=== PATIENT | female | born 1930 | race Caucasian/White ===

== ENCOUNTER 2016-05-15 12:19 | Inpatient (IN) | payer MEDICARE, OTHER ==
[~2016-05-15] VITALS: Ht 172.7 cm; Wt 79.0 kg
[~2016-05-15 12:19] MED LIST: ADVA250A INH; ALBU.5I INH; ASPI81 PO; B COTAB3 PO; CALC600T34 PO; CARV12.52 PO; COZA50TA PO; LEVO75TA42 PO; LORA-392 PO; LOSA25TA31 PO; MULT-65 PO; OMEGCAP2 PO; PRED10PA PO; SERT100 PO; SPECCAP4 PO; VITA3000 PO; ZITH500T PO
[2016-05-15 12:23] VITALS: BP 186/96; PULSE 75; RESP 22; TEMP 98.1; O2SAT 91
[2016-05-15] MEDS ORDERED: ALBU0.08 NEB (12:43)
[2016-05-15] MEDS ORDERED: SPIRCAP INH (12:43)
[2016-05-15] MEDS ORDERED: VITA100036 PO (12:43)
[2016-05-15] MEDS ORDERED: MULT-135 PO (12:43)
[2016-05-15] MEDS ORDERED: LOSA25TA PO (12:43)
[2016-05-15] MEDS ORDERED: CALC600T25 PO (12:43)
[2016-05-15] MEDS ORDERED: ASPI325T PO (12:43)
[2016-05-15] MEDS ORDERED: CARV12.52 PO (12:43)
[2016-05-15] MEDS ORDERED: VITATAB11 PO (12:43)
[2016-05-15] MEDS ORDERED: LORA-392 PO ×2 (12:43)
[2016-05-15] MEDS ORDERED: ZOLO100T PO (12:43)
[2016-05-15] MEDS ORDERED: LEVO75TA43 PO (12:43)
--- NOTE | 2016-05-15 12:58 | PD ---
HPI Chief Complaint: Respiratory Symptoms Time Seen by Provider: 12:43 Travel History International Travel<30 days: No Contact w/Intl Traveler<30days: No Traveled to known affect area: No History of Present Illness HPI This patient is brought in by [facility] for shortness of breath. She has long-standing history of COPD. She is nebulizer dependent and no longer smokes. She has productive cough but no fever. No chest pain. Symptoms severity is moderate. Duration 2 days. She has had some runny nose and congestion. No alleviating factors. She received Solu-Medrol in route [facility] Past Medical History Arthritis: Yes Asthma: Yes Autoimmune Disease: No Blood Disorders: No Anxiety: Yes Depression: Yes Heart Rhythm Problems: Yes (AFIB) Cancer: No Cardiovascular Problems: Yes (HTN) High Cholesterol: Yes (STOPPED TAKING ZETIA) Chemotherapy: No Chest Pain: No Congestive Heart Failure: Yes COPD: Yes Cerebrovascular Accident: No Diabetes: No Diminished Hearing: No Endocrine: No Gastrointestinal Disorders: No GERD: Yes Genitourinary: No Headaches: No Hiatal Hernia: Yes Heparin Induced Thrombocytopen: No Hypertension: Yes Implanted Vascular Access Dvce: No Kidney Stones: No Musculoskeletal: Yes Neurologic: No Psychiatric: Yes Reproductive: No Respiratory: Yes (COPD) Migraines: No Myocardial Infarction: Yes Radiation Therapy: No Renal Failure: No Seizures: No Sickle Cell Disease: No Sleep Apnea: No Thyroid Disease: No Ulcer: No PNEUMOCCOCAL Vaccine (Year): 2 ?: Not Menopausal: Yes Tubal Ligation: Yes Past Surgical History Abdominal Surgery: Yes (APPENDECTOMY) AICD: No Appendectomy: Yes Arteriovenous Shunt: No Cardiac Surgery: No Ear Surgery: No Endocrine Surgery: No Eye Surgery: No Genitourinary Surgery: No Gynecologic Surgery: No Insulin Pump: No Joint Replacement: No Neurologic Surgery: No Oral Surgery: No Pacemaker: No Thoracic Surgery: No Tonsillectomy: Yes Other Surgery: Yes (BREAST LUMP) Social History Alcohol Use: No Tobacco Use: No Substance Use: No Allergies-Medications (Allergen,Severity, Reaction): Coded Allergies: Codeine (Verified Allergy, Severe, INCREASE HEART RATE, 06/22/12) Levaquin (Verified Allergy, Severe, Rash, 06/22/12) Morphine (Verified Allergy, Severe, unknown, 06/22/12) "opiates" "can't remember reaction" Penicillin (Verified Allergy, Severe, Rash, 06/22/12) Sulfa (Verified Allergy, Intermediate, 06/22/12) Reported Meds & Prescriptions Reported Meds & Active Scripts Active Reported Zoloft (Sertraline HCl) 100 Mg Tab 100 Mg PO HS Multi Vitamin (Multiple Vitamin) 1 Tab Tab 1 Tab PO DAILY Losartan (Losartan Potassium) 25 Mg Tab 25 Mg PO DAILY Ativan (Lorazepam) 0.5 Mg Tab 2 Tab PO HS Ativan (Lorazepam) 0.5 Mg Tab 0.5 Mg PO DAILY Levoxyl (Levothyroxine Sodium) 75 Mcg Tab 75 Mcg PO DAILY Vitamin D3 (Cholecalciferol) 1,000 Unit Cap Unknown Dose PO DAILY Carvedilol 12.5 Mg Tab 12.5 Mg PO BID Calcium (Calcium Carbonate) 600 Mg Tab 600 Mg PO HS Vitamin B Complex (B-Complex Vitamins) 1 Tab 1 Tab PO DAILY Aspirin 325 Mg Tab 325 Mg PO HS Albuterol Neb (Albuterol Sulfate) 2.5 Mg/3 Ml Neb 2.5 Mg NEB Q4HR NEB PRN Spiriva Handihaler (Tiotropium Inh) 18 Mcg Cap 18 Mcg INH DAILY 1 capsule = 18 mcg Review of Systems General / Constitutional: No: Fever Eyes: No: Visual changes HENT: Positive: Congestion, No: Headaches Cardiovascular: No: Chest Pain or Discomfort Respiratory: Positive: Cough, Shortness of Breath, Wheezing Gastrointestinal: No: Abdominal Pain Genitourinary: No: Dysuria Musculoskeletal: No: Pain Skin: No Rash Neurologic: No: Weakness Psychiatric: No: Depression Endocrine: No: Polydipsia Hematologic/Lymphatic: No: Easy Bruising Physical Exam Narrative GENERAL: Thin elderly well-developed patient with dyspnea SKIN: Warm and dry. HEAD: Atraumatic. Normocephalic. EYES: Pupils equal and round. No scleral icterus. No injection or drainage. ENT: No nasal bleeding or discharge. Mucous membranes pink and moist. NECK: Trachea midline. No JVD. CARDIOVASCULAR: Regular rate and rhythm. No murmur appreciated. RESPIRATORY: Positive accessory muscle use. Diffuse expiratory wheezing. Breath sounds equal bilaterally. GASTROINTESTINAL: Abdomen soft, non-tender, nondistended. Hepatic and splenic margins not palpable. MUSCULOSKELETAL: No obvious deformities. No clubbing. No cyanosis. No edema. NEUROLOGICAL: Awake and alert. No obvious cranial nerve deficits. Motor grossly within normal limits. Normal speech. PSYCHIATRIC: Appropriate mood and affect; insight and judgment normal. Data Data Last Documented VS Vital Signs Date Time Temp Pulse Resp B/P Pulse Ox O2 Delivery O2 Flow Rate FiO2 05/15/16 13:06 94 Nasal Cannula 2.00 05/15/16 12:30 22 05/15/16 12:23 98.1 75 186/96 Orders Complete Blood Count With Diff (05/15/16 12:48) Basic Metabolic Panel (Bmp) (05/15/16 12:48) Iv Access Insert/Monitor (05/15/16 12:48) Ecg Monitoring (05/15/16 12:48) Oximetry (05/15/16 12:48) Oxygen Administration (05/15/16 12:48) Chest, Single Ap (05/15/16 12:48) Sodium Chloride 0.9% Flush (Ns Flush) (05/15/16 13:00) Albuterol-Ipratropium Neb (Duoneb Neb) (05/15/16 13:00) Admit Order (Ed Use Only) (05/15/16 14:09) Labs Laboratory Tests Test 05/15/16 12:55 White Blood Count 4.9 TH/MM3 Red Blood Count 4.73 MIL/MM3 Hemoglobin 13.0 GM/DL Hematocrit 39.2 % Mean Corpuscular Volume 82.8 FL Mean Corpuscular Hemoglobin 27.4 PG Mean Corpuscular Hemoglobin 33.1 % Concent Red Cell Distribution Width 13.4 % Platelet Count 180 TH/MM3 Mean Platelet Volume 6.5 FL Neutrophils (%) (Auto) 72.1 % Lymphocytes (%) (Auto) 18.6 % Monocytes (%) (Auto) 4.0 % Eosinophils (%) (Auto) 2.6 % Basophils (%) (Auto) 2.7 % Neutrophils # (Auto) 3.6 TH/MM3 Lymphocytes # (Auto) 0.9 TH/MM3 Monocytes # (Auto) 0.2 TH/MM3 Eosinophils # (Auto) 0.1 TH/MM3 Basophils # (Auto) 0.1 TH/MM3 CBC Comment DIFF FINAL Differential Comment Sodium Level 125 MEQ/L Potassium Level 3.6 MEQ/L Chloride Level 88 MEQ/L Carbon Dioxide Level 29.4 MEQ/L Anion Gap 8 MEQ/L Blood Urea Nitrogen 7 MG/DL Creatinine 0.41 MG/DL Estimat Glomerular Filtration 148 ML/MIN Rate Random Glucose 123 MG/DL Calcium Level 8.3 MG/DL MDM Medical Decision Making Medical Screen Exam Complete: Yes Emergency Medical Condition: Yes Medical Record Reviewed: Yes Differential Diagnosis Differential diagnosis includes COPD, asthma, pneumonia, bronchitis, CHF Narrative Course I have reviewed the patient's electronic medical record. Was here for multiple episodes of COPD in 2012 IV placed I gave her series of 3 nebulizer treatments I reviewed her EKG which shows sinus rhythm but no ST elevation or ectopy Extended cardiac monitoring reveals sinus rhythm without ectopy I reviewed her chest x-ray which is normal, same as compared to 2013 CBC is normal Metabolic profile shows hyponatremia, I suspect from her diuretic use Fell of the above treatments, the patient is still short of breath and is hypoxic on room air with 88% room air saturation Will require hospitalization Call placed to hospitalist to discuss Diagnosis Primary Impression: Acute respiratory failure with hypoxia Additional Impression: COPD with acute bronchitis Admitting Information Admitting Physician Requests: Admit Omar Plasencia MD May 15, 2016 12:58
[2016-05-15] MEDS ORDERED: SODIUM CHLORIDE 0.9% FLUSH 5 ML FLUSH IVF PRN (13:00)
[2016-05-15] MEDS: RESP: ALBUTEROL 2.5 MG/IPRATROPIUM 0.5 MG NEB (SCH) INH ×3 (13:03→23:30)
[2016-05-15 13:06] VITALS: O2SAT 94
[2016-05-15 13:08] LABS: AUTOMATED NEUTROPHIL # 3.6 TH/MM3 (1.8-7.7); BASOPHIL # 0.1 TH/MM3 (0-0.2); BASOPHIL % 2.7 % (0.0-2.0); EOSINOPHIL # 0.1 TH/MM3 (0-0.4); EOSINOPHIL % 2.6 % (0.0-4.0); HEMATOCRIT 39.2 % (35.0-46.0); HEMO FLAGS DIFF FINAL; LYMPH % 18.6 % (9.0-44.0); LYMPHOCYTE # 0.9 TH/MM3 (1.0-4.8); MEAN CELL VOLUME 82.8 FL (80.0-100.0); MEAN CORPUSCULAR HEMOGLOBIN 27.4 PG (27.0-34.0); MEAN CORPUSCULAR HGB CONC 33.1 % (32.0-36.0); NEUT % 72.1 % (16.0-70.0); PLATELET COUNT 180 TH/MM3 (150-450); RED BLOOD COUNT 4.73 MIL/MM3 (4.00-5.30); RED CELL DISTRIBUTION WIDTH 13.4 % (11.6-17.2); WHITE BLOOD COUNT 4.9 TH/MM3 (4.0-11.0)
--- NOTE | 2016-05-15 13:13 | RADHPO ---
EXAM DATE/TIME: 05/15/2016 12:58 [facility] COMPARISON: CHEST SINGLE AP, June 22, 2012, 15:20. INDICATIONS : Short of breath & chest pain. MEDICAL HISTORY : Hypertension. Hypercholesterolemia. Emphysema. LA. CHF. A-fib. COPD.Asthma. Hiatial hernia. GERD. Arthritis. SURGICAL HISTORY : Tonsillectomy. Tubal ligation. Appendectomy. Lumbar surgery. ENCOUNTER: Initial ACUITY: 1 day PAIN SCORE: 7/10 LOCATION: chest FINDINGS: A single view of the chest demonstrates the lungs to be symmetrically aerated without evidence of mas s, infiltrate or effusion. The cardiomediastinal contours are unremarkable. Osseous structures are intact. CONCLUSION: Normal examination. Continued diffuse interstitial prominence similar to 2013. Ryan Kee MD on May 15, 2016 at 13:12 Board Certified Radiologist. This report was verified electronically.
[2016-05-15 13:15] LABS: POTASSIUM 3.6 MEQ/L (3.5-5.1)
[2016-05-15 13:18] LABS: BICARBONATE 29.4 MEQ/L (21.0-32.0)
[2016-05-15 14:11] VITALS: BP 166/99; PULSE 81; RESP 18; O2SAT 94
[2016-05-15 14:12] VITALS: RESP 20; O2SAT 93
[2016-05-15] MEDS ORDERED: SODIUM CHLORIDE 0.9% FLUSH 5 ML FLUSH FLUSH PRN (15:15)
--- NOTE | 2016-05-15 16:43 | HHI.HP ---
[facility] Primary Care Physician No Primary Care Physician Admission Diagnosis hyoxia,COPD Exac Diagnoses: (1) Shortness of breath Diagnosis: Principal (2) Chronic obstructive pulmonary disease Diagnosis: Principal (3) Hypoxia Diagnosis: Principal (4) Hypertension Diagnosis: Secondary (5) Hyperlipidemia Diagnosis: Secondary (6) Lupus Chief Complaint: Shortness of breath, dyspnea, cough, congestion Travel History International Travel<30 Days: No Contact w/Intl Traveler <30 Da: No Traveled to Known Affected Are: No History of Present Illness 85-year-old female with known history of hypertension, hyperlipidemia , history myocardial infarction, history of atrial fibrillation, lupus, chronic obstructive pulmonary disease who presented to hospital because of shortness of breath, dyspnea, cough, congestion. Patient states that his normal state of health until her daughter came down to visit. Her daughter was ill with upper respiratory symptoms. Similarly after that the patient started developing upper respiratory symptoms to include cough, congestion, fever, chills. Patient states that it started getting progressively worse yesterday and when she is short of breath today she called her solder sprayer Dr. Noguera who told her to come to the hospital because she couldn't finish a sentence. Patient was found to have hypoxia with O2 saturation 85% on room air. Patient given nebulizer treatments, O2 supplementation with improvement of her O2 saturation of 92% on 2 L. However she still desaturates quite easily when off oxygen. Patient does have history of chronic affective pulmonary disease, she does have a high wire artist Dr. Sparrow. She states that she hasn't seen in min quite some time. Patient states that she has had fever, chills, cough, congestion, phlegm production, shortness of breath, dyspnea. Denies any chest pain, dyspnea on exertion, lower extremity edema. Review of Systems Constitutional: DENIES: Diaphoretic episodes, Fatigue, Fever, Weight gain, Weight loss, Chills, Dizziness, Change in appetite, Night Sweats Eyes: DENIES: Blurred vision, Diplopia, Eye inflammation, Eye pain, Vision loss , Double Vision Ears, nose, mouth, throat: DENIES: Vertigo, Nasal discharge, Throat pain, Ear Pain, Running Nose, Sinus Pain Respiratory: COMPLAINS OF: Cough, Sputum production, Shortness of breath, DENIES: Apneas, Snoring, Wheezing, Hemoptysis Cardiovascular: COMPLAINS OF: Claudication, DENIES: Chest pain, Palpitations, Syncope, Dyspnea on Exertion, Lower Extremity Edema, Orthopnea Gastrointestinal: DENIES: Abdominal pain, Black stools, Bloody stools, Constipation, Diarrhea, Nausea, Vomiting, Difficulty Swallowing, Anorexia Neurologic: DENIES: Abnormal gait, Headache, Localized weakness, Paresthesias, Seizures, Speech Problems, Tremor, Poor Balance Past Family Social History Past Medical History Hypertension Hyperlipidemia History myocardial infarction Atrial fibrillation Chronic obstructive pulmonary disease Lupus Rheumatoid arthritis Hypothyroidism Stress urinary incontinence Past Surgical History Tubal ligation Tonsillectomy Lumbar disc surgery Left breast lumpectomy Reported Medications Reported Meds & Active Scripts Active Reported Zoloft (Sertraline HCl) 100 Mg Tab 100 Mg PO HS Multi Vitamin (Multiple Vitamin) 1 Tab Tab 1 Tab PO DAILY Losartan (Losartan Potassium) 25 Mg Tab 25 Mg PO DAILY Ativan (Lorazepam) 0.5 Mg Tab 2 Tab PO HS Ativan (Lorazepam) 0.5 Mg Tab 0.5 Mg PO DAILY Levoxyl (Levothyroxine Sodium) 75 Mcg Tab 75 Mcg PO DAILY Vitamin D3 (Cholecalciferol) 1,000 Unit Cap Unknown Dose PO DAILY Carvedilol 12.5 Mg Tab 12.5 Mg PO BID Calcium (Calcium Carbonate) 600 Mg Tab 600 Mg PO HS Vitamin B Complex (B-Complex Vitamins) 1 Tab 1 Tab PO DAILY Aspirin 325 Mg Tab 325 Mg PO HS Albuterol Neb (Albuterol Sulfate) 2.5 Mg/3 Ml Neb 2.5 Mg NEB Q4HR NEB PRN Spiriva Handihaler (Tiotropium Inh) 18 Mcg Cap 18 Mcg INH DAILY 1 capsule = 18 mcg Allergies: Coded Allergies: Codeine (Verified Allergy, Severe, INCREASE HEART RATE, 06/22/12) Levaquin (Verified Allergy, Severe, Rash, 06/22/12) Morphine (Verified Allergy, Severe, unknown, 06/22/12) "opiates" "can't remember reaction" Penicillin (Verified Allergy, Severe, Rash, 06/22/12) Sulfa (Verified Allergy, Intermediate, 06/22/12) Family History Reviewed is significant for heart disease Social History Patient for smoking in 1982, prior to that she smoked up to a pack a cigarettes a day since she was roughly 10 years old. He does drink a glass of wine occasionally. Denies any illicit drugs Physical Exam Vital Signs Vital Signs Date Time Temp Pulse Resp B/P Pulse Ox O2 Delivery O2 Flow Rate FiO2 05/15/16 14:12 20 93 Nasal Cannula 2 05/15/16 14:11 81 18 166/99 94 Nasal Cannula 2 05/15/16 14:11 94 Nasal Cannula 2 05/15/16 13:06 94 Nasal Cannula 2.00 05/15/16 12:30 22 95 Nasal Cannula 2 05/15/16 12:23 98.1 75 22 186/96 91 Physical Exam GENERAL: Well-developed, well-nourished, in no acute distress. alert and orientated HEENT: Head is normocephalic without any lesions or masses noted. Facial features are symmetric. Eyes: Pupils equal round reactive to light. Extraocular muscles are intact. Conjunctivae were clear. Oropharyngeal: Pharynx without any erythema edema. Tongue is midline without deviation. Buccal mucosa is moist without any masses or lesions NECK: Supple without any masses. Trachea midline no deviation. No JVD, no bruits are appreciated CARDIAC: Regular rhythm, regular rate. S1/S2 are heard. No murmurs gallops or rubs. LUNGS: Wheeze noted bilaterally, no rhonchi or rales. No use of accessory muscles on inspiration or expiration. ABDOMEN: Soft, nontender. Nondistended. Bowel sounds heard in all 4 quadrants. No organomegaly or masses. Negative rebound, negative guarding EXTREMITIES: No edema, pulses are equal bilaterally. No cyanosis or clubbing NEUROLOGY: Mood and affect appear appropriate. Cranial nerves II through XII grossly intact. Muscle strength 5/5 in upper and lower extremities bilaterally. Deep tendon reflexes are 2+ in upper and lower extremities bilaterally. Laboratory Laboratory Tests Test 05/15/16 12:55 White Blood Count 4.9 Red Blood Count 4.73 Hemoglobin 13.0 Hematocrit 39.2 Mean Corpuscular Volume 82.8 Mean Corpuscular Hemoglobin 27.4 Mean Corpuscular Hemoglobin 33.1 Concent Red Cell Distribution Width 13.4 Platelet Count 180 Mean Platelet Volume 6.5 Neutrophils (%) (Auto) 72.1 Lymphocytes (%) (Auto) 18.6 Monocytes (%) (Auto) 4.0 Eosinophils (%) (Auto) 2.6 Basophils (%) (Auto) 2.7 Neutrophils # (Auto) 3.6 Lymphocytes # (Auto) 0.9 Monocytes # (Auto) 0.2 Eosinophils # (Auto) 0.1 Basophils # (Auto) 0.1 CBC Comment DIFF FINAL Differential Comment Sodium Level 125 Potassium Level 3.6 Chloride Level 88 Carbon Dioxide Level 29.4 Anion Gap 8 Blood Urea Nitrogen 7 Creatinine 0.41 Estimat Glomerular Filtration 148 Rate Random Glucose 123 Calcium Level 8.3 Result Diagram: 05/15/16 1255 05/15/16 1255 Imaging Last Impressions Chest X-Ray 05/15/16 1248 Signed Impressions: Service Date/Time: Sunday, May 15, 2016 12:58 - CONCLUSION: Normal examination. Continued diffuse interstitial prominence similar to 2013. Ryan Kee MD Assessment and Plan Assessment and Plan Chronic obstructive pulmonary disease exacerbation with hypoxia Continue O2 supplementation maintain O2 sats greater than 92% Continue nebulizer treatments every 4 hours and every 2 hours Solu-Medrol 60 mg every 6 hours Incentive spirometry Start Mucinex Start Zithromax Hyponatremia Likely secondary to HCTZ We'll hold HCTZ at this time Check serum osmolality, urine osmolality, urine sodium Continue IV fluids Monitor sodium level Chest x-ray does not indicate any mass Hypertension, hyperlipidemia, history myocardial infarction, history of a defibrillation Resume home medications Hypothyroidism Check TSH DVT prevention Sequential compression devices Physician Certification 2 Midnight Certification Type: Admission for Inpatient Services Order for Inpatient Services The services are ordered in accordance with Medicare regulations or non- Medicare payer requirements, as applicable. In the case of services not specified as inpatient-only, they are appropriately provided as inpatient services in accordance with the 2-midnight benchmark. Estimated LOS (days): 2 days is the estimated time the patient will need to remain in the hospital, assuming treatment plan goals are met and no additional complications. Post-Hospital Plan: Not yet determined Problem Qualifiers (1) Chronic obstructive pulmonary disease: Qualified Code: J44.9 - Chronic obstructive pulmonary disease, unspecified COPD type (2) Hypertension: Qualified Code: I15.9 - Secondary hypertension (3) Hyperlipidemia: Qualified Code: E78.5 - Hyperlipidemia, unspecified hyperlipidemia type (4) Lupus: Qualified Code: M32.9 - Systemic lupus erythematosus, unspecified SLE type, unspecified organ involvement status Gil,Omar J. PA May 15, 2016 16:42 Christina Abdul MD May 15, 2016 17:37
[2016-05-15] MEDS ORDERED: RESP: ALBUTEROL 2.5 MG/IPRATROPIUM 0.5 MG NEB (PRN) NEB (17:00)
[2016-05-15] MEDS ORDERED: MAGNESIUM HYDROXIDE SUSP 30 ML CUP PO PRN (17:00)
[2016-05-15] MEDS ORDERED: NALOXONE HCL 0.4 MG/ML AMP IV PRN (17:00)
[2016-05-15] MEDS ORDERED: TEMAZEPAM 15 MG CAP PO PRN (17:00)
[2016-05-15] MEDS ORDERED: ACETAMINOPHEN 325 MG TAB PO PRN (17:00)
[2016-05-15] MEDS ORDERED: BISACODYL 10 MG SUPP PR PRN (17:00)
[2016-05-15] MEDS: methylPREDNISolone SOD SUCC 125 MG/2 ML VIAL IVP SCH ×2 (17:53→22:13)
[2016-05-15] MEDS ORDERED: LORazepam 2 MG/ML VIAL IV PUSH PRN (19:00)
[2016-05-15] MEDS: ONDANSETRON HCL 4 MG/2 ML VIAL IVP PRN (19:16)
[2016-05-15 19:53] VITALS: O2SAT 94
[2016-05-15] MEDS ORDERED: IOHEXOL 350 MG/ML 10 ML VIAL (for RAD DIAG) IV ONE (19:54)
[2016-05-15 20:00] VITALS: BP 158/80; PULSE 89; RESP 20; TEMP 97.4; O2SAT 95
--- NOTE | 2016-05-15 20:27 | RADHPO ---
EXAM DATE/TIME: 05/15/2016 19:35 [facility] COMPARISON: No previous studies available for comparison. INDICATIONS: Hypoxia with elevated D-Dimer. IV CONTRAST: 65 cc Omnipaque 350 (iohexol) IV RADIATION DOSE: 7.17 CTDIvol (mGy) MEDICAL HISTORY: Hypertension. Chronic obstructive pulmonary disease. Cardiovascular disease SURGICAL HISTORY: Appendectomy. ENCOUNTER: Initial ACUITY: 4 - 6 days PAIN SCALE: 0/10 LOCATION: Chest TECHNIQUE: Volumetric scanning of the chest was performed using a pulmonary embolism protocol MIP images were re constructed. Using automated exposure control and adjustment of the mA and/or kV according to patien t size, radiation dose was kept as low as reasonably achievable to obtain optimal diagnostic quality images. FINDINGS: A pulmonary embolus is not clearly seen. There does appear to be enlargement of the main right and l eft pulmonary arteries which can suggest pulmonary hypertension. The patient has calcified granulomas in the right upper lung. There is some patchy areas of focal consolidation in the upper lobes bilaterally. There is also some patchy areas of density seen at the right lung base. There are mildly prominent lymph nodes seen in the mediastinum. Pathologically enlarged adenopathy i s not clearly identified. There are coronary artery calcifications present. No effusion is seen. There a re calcified granulomas seen in the spleen. The inferior aspect of the right lobe of the thyroid appears fine. CONCLUSION: 1. No pulmonary embolus. 2. Enlargement of the main right and left pulmonary arteries which can suggest pulmonary hypertensio n. 3. Patchy areas of consolidation or atelectasis is seen in the lungs bilaterally being more numerous on the right. Juma Verduzco MD on May 15, 2016 at 20:05 Board Certified Radiologist. This report was verified electronically.
[2016-05-15] MEDS ORDERED: SODIUM CHLORIDE 0.9% FLUSH 5 ML FLUSH FLUSH SCH (21:00)
[2016-05-15] MEDS ORDERED: LORazepam 1 MG TAB PO SCH (21:00)
[2016-05-15] MEDS: SERTRALINE HCL 100 MG TAB PO SCH (22:12)
[2016-05-15] MEDS: CARVEDILOL 12.5 MG TAB PO SCH (22:12)
[2016-05-15] MEDS: guaiFENesin E.R. 600 MG TAB PO SCH (22:12)
[2016-05-15] MEDS: SODIUM CHLORIDE 0.9% FLUSH 5 ML FLUSH IVF SCH (22:13)
[2016-05-15] MEDS: ASPIRIN 325 MG TAB PO SCH (22:15)
[2016-05-16] VITALS (7 sets, daily range): BP systolic 126–157; BP diastolic 70–96; PULSE 71–112; RESP 15–20; TEMP 96.3–97.7; O2SAT 92–94
[2016-05-16] MEDS: RESP: ALBUTEROL 2.5 MG/IPRATROPIUM 0.5 MG NEB (SCH) INH ×6 (03:07→23:49)
[2016-05-16] MEDS: LEVOTHYROXINE SODIUM 75 MCG TAB PO SCH (05:28)
[2016-05-16] MEDS: methylPREDNISolone SOD SUCC 125 MG/2 ML VIAL IVP SCH ×4 (05:29→23:15)
[2016-05-16 06:30] LABS: AUTOMATED NEUTROPHIL # 5.7 TH/MM3 (1.8-7.7); BASOPHIL % 0.5 % (0.0-2.0); EOSINOPHIL % 0.1 % (0.0-4.0); HEMATOCRIT 41.8 % (35.0-46.0); HEMO FLAGS DIFF FINAL; LYMPH % 12.1 % (9.0-44.0); LYMPHOCYTE # 0.8 TH/MM3 (1.0-4.8); MEAN CORPUSCULAR HEMOGLOBIN 27.3 PG (27.0-34.0); MONO % 2.6 % (0.0-8.0); NEUT % 84.7 % (16.0-70.0); PLATELET COUNT 230 TH/MM3 (150-450); RED BLOOD COUNT 5.04 MIL/MM3 (4.00-5.30); RED CELL DISTRIBUTION WIDTH 13.8 % (11.6-17.2); WHITE BLOOD COUNT 6.7 TH/MM3 (4.0-11.0)
[2016-05-16 06:38] LABS: POTASSIUM 3.9 MEQ/L (3.5-5.1)
[2016-05-16 07:06] LABS: BICARBONATE 32.7 MEQ/L (21.0-32.0)
[2016-05-16] MEDS ORDERED: LORazepam 0.5 MG TAB PO SCH (09:00)
[2016-05-16] MEDS: CARVEDILOL 12.5 MG TAB PO SCH ×2 (09:42→22:08)
[2016-05-16] MEDS: AZITHROMYCIN 250 MG TAB PO SCH (09:42)
[2016-05-16] MEDS: guaiFENesin E.R. 600 MG TAB PO SCH ×2 (09:42→22:08)
[2016-05-16] MEDS: LOSARTAN 25 MG TAB PO SCH (09:42)
[2016-05-16] MEDS: SODIUM CHLORIDE 0.9% FLUSH 5 ML FLUSH IVF SCH ×2 (09:42→22:09)
[2016-05-16] MEDS ORDERED: BENZOCAINE 6 MG/MENTHOL 10 MG LOZENGE BUCCAL PRN (11:15)
[2016-05-16] MEDS ORDERED: guaiFENesin/CODEINE SYRUP 200 MG/20 MG/10 ML CUP PO PRN (11:15)
--- NOTE | 2016-05-16 11:17 | HHI.PR ---
Subjective Remarks Patient still feels quite dyspneic with talking or exertion. She also complains of sore throat. Not feeling much improved since admission. Objective Vitals Vital Signs Date Time Temp Pulse Resp B/P Pulse Ox O2 Delivery O2 Flow Rate FiO2 05/16/16 08:56 97.7 100 15 145/96 93 05/16/16 07:56 92 Nasal Cannula 3.00 05/16/16 00:00 97.6 71 20 134/78 92 05/15/16 20:00 97.4 89 20 158/80 95 05/15/16 19:53 94 Nasal Cannula 3.00 05/15/16 14:12 20 93 Nasal Cannula 2 05/15/16 14:11 81 18 166/99 94 Nasal Cannula 2 05/15/16 14:11 94 Nasal Cannula 2 05/15/16 13:06 94 Nasal Cannula 2.00 05/15/16 12:30 22 95 Nasal Cannula 2 05/15/16 12:23 98.1 75 22 186/96 91 I/O 05/15/16 05/15/16 05/15/16 05/16/16 05/16/16 05/16/16 07:00 15:00 23:00 07:00 15:00 23:00 Intake Total 240 ml 60 ml Output Total 350 ml Balance -110 ml 60 ml Intake Oral 240 ml 60 ml Output Urine Total 350 ml # Voids 2 2 # Bowel Movements 0 0 Result Diagram: 05/16/16 0608 05/16/16 0608 Objective Remarks GENERAL: Well-nourished, well-developed pleasant elderly female patient. SKIN: Warm and dry. HEAD: Normocephalic. EYES: No scleral icterus. No injection or drainage. NECK: Supple, trachea midline. No JVD or lymphadenopathy. CARDIOVASCULAR: Regular rate and rhythm without murmurs, gallops, or rubs. RESPIRATORY: The patient does get notably dyspneic when speaking for long periods of time. She has expiratory wheezing bilaterally. Dry cough noted. GASTROINTESTINAL: Abdomen soft, non-tender, nondistended. EXTREMITIES: No cyanosis, or edema. Patient does have a 1 cm black nodule on her right anterior saravia indicative of a skin cancer. NEUROLOGICAL: Awake, alert, and oriented x 3. Non-focal. A/P Problem List: (1) Shortness of breath ICD Code: R06.02 Status: Acute (2) Chronic obstructive pulmonary disease ICD Code: J44.9 Status: Acute (3) Hypoxia ICD Code: R09.02 Status: Acute (4) Hypertension ICD Code: I10 Status: Acute (5) Hyperlipidemia ICD Code: E78.5 Status: Acute (6) Lupus ICD Code: M32.9 Status: Acute Assessment and Plan -COPD exacerbation with new onset hypoxia. The patient gives a long-standing history of getting dyspneic with exertion. She likely will require home oxygen. Continue Solu-Medrol 60 mg IV every 6 hours, DuoNeb's, Zithromax. Chest CTA was negative for pulmonary embolism but did show patchy areas of consolidation or atelectasis bilaterally more numerous on the right. We'll place on Azactam IV as well as she is allergic to Levaquin and penicillin. Continue O2 via nasal cannula at 3 L. -Hyponatremia. Probably secondary to the HCTZ, slight improvement today. Continue to monitor daily, consider NS IVF. Hypertension -Continue Cozaar, Coreg -Anxiety and depression. -Continue Ativan and Zoloft. As per home doses. -history myocardial infarction -continue aspirin, beta evelyn. Hypothyroidism Continue Synthroid. TSH within normal limits. DVT prevention Sequential compression devices Problem Qualifiers (1) Chronic obstructive pulmonary disease: Qualified Code: J44.9 - Chronic obstructive pulmonary disease, unspecified COPD type (2) Hypertension: Qualified Code: I15.9 - Secondary hypertension (3) Hyperlipidemia: Qualified Code: E78.5 - Hyperlipidemia, unspecified hyperlipidemia type (4) Lupus: Qualified Code: M32.9 - Systemic lupus erythematosus, unspecified SLE type, unspecified organ involvement status Geovanna Cazares MD May 16, 2016 11:17
[2016-05-16] MEDS: AZTREONAM INJ 2,000 MG in SODIUM CHLORIDE 0.9% INJ 100 ML IV SCH ×2 (14:49→22:08)
--- NOTE | 2016-05-16 15:48 | EKG ---
Date Performed: 05/15/2016 Time Performed: 12:24:36 PTAGE: 85 years EKG: Sinus rhythm . Leftward axis Incomplete RBBB Possible anterior infarct - age undetermined Right ventricular hypert rophy Compared to prior tracing no significant change Abnormal ECG PREVIOUS TRACING : 06/22/2012 14.41 DOCTOR: Brian Zaidi Interpretating Date/Time 05/16/2016 15:45:26
[2016-05-16] MEDS: LORazepam 0.5 MG TAB PO PRN ×2 (16:15→22:08)
[2016-05-16] MEDS: ONDANSETRON HCL 4 MG/2 ML VIAL IVP PRN (18:03)
[2016-05-16] MEDS: ASPIRIN 325 MG TAB PO SCH (22:08)
[2016-05-16] MEDS: SERTRALINE HCL 100 MG TAB PO SCH (22:09)
[2016-05-17] VITALS (8 sets, daily range): BP systolic 149–176; BP diastolic 86–112; PULSE 73–106; RESP 18–22; TEMP 96.7–98.8; O2SAT 91–95
[2016-05-17] MEDS: RESP: ALBUTEROL 2.5 MG/IPRATROPIUM 0.5 MG NEB (SCH) INH ×4 (03:01→22:13)
[2016-05-17] MEDS: methylPREDNISolone SOD SUCC 125 MG/2 ML VIAL IVP SCH ×4 (05:37→23:51)
[2016-05-17] MEDS: AZTREONAM INJ 2,000 MG in SODIUM CHLORIDE 0.9% INJ 100 ML IV SCH ×3 (05:37→21:12)
[2016-05-17] MEDS: LEVOTHYROXINE SODIUM 75 MCG TAB PO SCH (05:39)
[2016-05-17] MEDS: LORazepam 0.5 MG TAB PO PRN ×2 (05:43→14:39)
[2016-05-17 06:06] LABS: POTASSIUM 4.3 MEQ/L (3.5-5.1)
[2016-05-17 06:15] LABS: BICARBONATE 31.8 MEQ/L (21.0-32.0)
[2016-05-17] MEDS: CARVEDILOL 12.5 MG TAB PO SCH ×2 (09:01→21:11)
[2016-05-17] MEDS: LOSARTAN 25 MG TAB PO SCH (09:01)
[2016-05-17] MEDS: AZITHROMYCIN 250 MG TAB PO SCH (09:01)
[2016-05-17] MEDS: SODIUM CHLORIDE 0.9% FLUSH 5 ML FLUSH IVF SCH ×2 (09:02→21:12)
[2016-05-17] MEDS: guaiFENesin E.R. 600 MG TAB PO SCH ×2 (10:38→21:12)
--- NOTE | 2016-05-17 12:20 | HHI.PR ---
Subjective Remarks Patient seen at 11:30 AM. She does not feel any improved today. Still dyspneic with exertion. Nasal congestion. She also complains of headache and subjective fevers. She also complains of not sleeping well and requests to have the DuoNeb scheduled during the day. She declines Benadryl to help her sleep. Declines sleeping pill. Patient feels she will do better if placed back on Spiriva. Objective Vitals Vital Signs Date Time Temp Pulse Resp B/P Pulse Ox O2 Delivery O2 Flow Rate FiO2 05/17/16 09:44 92 Nasal Cannula 3.00 05/17/16 08:00 98.0 82 20 164/90 91 05/17/16 05:30 97.7 86 22 176/99 94 05/17/16 00:00 96.7 106 20 168/112 95 05/16/16 20:00 97.6 89 20 126/70 94 Automatic Cuff 05/16/16 19:45 93 Nasal Cannula 3.00 05/16/16 17:48 96.8 102 20 157/91 94 05/16/16 15:00 3.00 05/16/16 14:08 3.00 I/O 05/16/16 05/16/16 05/16/16 05/17/16 05/17/16 05/17/16 07:00 15:00 23:00 07:00 15:00 23:00 Intake Total 60 ml 500 ml 800 ml 580 ml Balance 60 ml 500 ml 800 ml 580 ml Intake Oral 60 ml 500 ml 800 ml 480 ml IV Total 100 ml # Voids 2 4 4 # Bowel Movements 0 0 Result Diagram: 05/16/16 0608 05/17/16 0440 Objective Remarks GENERAL: Well-nourished, well-developed pleasant elderly female patient. SKIN: Warm and dry. HEAD: Normocephalic. EYES: No scleral icterus. No injection or drainage. NECK: Supple, trachea midline. No JVD or lymphadenopathy. CARDIOVASCULAR: Regular rate and rhythm without murmurs, gallops, or rubs. RESPIRATORY: She has expiratory wheezing bilaterally with prolonged expiratory phase but nonlabored breathing on nasal cannula. GASTROINTESTINAL: Abdomen soft, non-tender, nondistended. EXTREMITIES: No cyanosis, or edema. Patient does have a 1 cm black nodule on her right anterior/lateral saravia indicative of a skin cancer. NEUROLOGICAL: Awake, alert, and oriented x 3. Non-focal. A/P Problem List: (1) Shortness of breath ICD Code: R06.02 Status: Acute (2) Chronic obstructive pulmonary disease ICD Code: J44.9 Status: Acute (3) Hypoxia ICD Code: R09.02 Status: Acute (4) Hypertension ICD Code: I10 Status: Acute (5) Hyperlipidemia ICD Code: E78.5 Status: Acute (6) Lupus ICD Code: M32.9 Status: Acute Assessment and Plan -COPD exacerbation with new onset hypoxia. The patient gives a long-standing history of getting dyspneic with exertion. No significant improvement today. Continue Solu-Medrol 60 mg IV every 6 hours, DuoNeb's, Zithromax, Azactam IV. Chest CTA was negative for pulmonary embolism but did show patchy areas of consolidation or atelectasis bilaterally more numerous on the right. Change DuoNeb's to 3 times a day as patient requests, start Spiriva. Continue O2 via nasal cannula at 3 L. -Hyponatremia. Probably secondary to the HCTZ, improving daily. HCTZ discontinued. Hypertension -Continue Cozaar, Coreg -Anxiety and depression. -Continue Ativan and Zoloft. As per home doses. -history myocardial infarction -continue aspirin, beta evelyn. Hypothyroidism Continue Synthroid. TSH within normal limits. DVT prevention Sequential compression devices Problem Qualifiers (1) Chronic obstructive pulmonary disease: Qualified Code: J44.9 - Chronic obstructive pulmonary disease, unspecified COPD type (2) Hypertension: Qualified Code: I15.9 - Secondary hypertension (3) Hyperlipidemia: Qualified Code: E78.5 - Hyperlipidemia, unspecified hyperlipidemia type (4) Lupus: Qualified Code: M32.9 - Systemic lupus erythematosus, unspecified SLE type, unspecified organ involvement status Geovanna Cazares MD May 17, 2016 12:20
[2016-05-17] MEDS: TIOTROPIUM BROMIDE 18 MCG INH INH SCH (14:48)
[2016-05-17] MEDS: SODIUM CHLORIDE 0.9% FLUSH 5 ML FLUSH IVF PRN ×2 (14:50→17:25)
[2016-05-17] MEDS: ASPIRIN 325 MG TAB PO SCH (21:11)
[2016-05-17] MEDS: SERTRALINE HCL 100 MG TAB PO SCH (21:11)
[2016-05-18] VITALS (8 sets, daily range): BP systolic 121–219; BP diastolic 71–122; PULSE 64–100; RESP 16–22; TEMP 97–98; O2SAT 93–96
[2016-05-18] MEDS: LEVOTHYROXINE SODIUM 75 MCG TAB PO SCH (05:52)
[2016-05-18] MEDS: AZTREONAM INJ 2,000 MG in SODIUM CHLORIDE 0.9% INJ 100 ML IV SCH ×3 (05:56→22:03)
[2016-05-18] MEDS: methylPREDNISolone SOD SUCC 125 MG/2 ML VIAL IVP SCH ×2 (05:56→11:00)
[2016-05-18 06:10] LABS: POTASSIUM 4.6 MEQ/L (3.5-5.1)
[2016-05-18 06:17] LABS: BICARBONATE 32.8 MEQ/L (21.0-32.0)
[2016-05-18] MEDS: LORazepam 0.5 MG TAB PO PRN ×2 (09:11→17:32)
[2016-05-18] MEDS: LOSARTAN 25 MG TAB PO SCH (09:12)
[2016-05-18] MEDS: AZITHROMYCIN 250 MG TAB PO SCH (09:12)
[2016-05-18] MEDS: CARVEDILOL 12.5 MG TAB PO SCH ×2 (09:12→22:02)
[2016-05-18] MEDS: guaiFENesin E.R. 600 MG TAB PO SCH ×2 (09:12→22:03)
[2016-05-18] MEDS: SODIUM CHLORIDE 0.9% FLUSH 5 ML FLUSH IVF SCH ×2 (09:14→22:03)
[2016-05-18] MEDS: TIOTROPIUM BROMIDE 18 MCG INH INH SCH (09:15)
[2016-05-18] MEDS: RESP: ALBUTEROL 2.5 MG/IPRATROPIUM 0.5 MG NEB (SCH) INH ×3 (10:19→19:58)
[2016-05-18] MEDS ORDERED: cloNIDine HCL 0.1 MG TAB PO PRN (11:45)
[2016-05-18] MEDS ORDERED: LOSA25TA PO (11:49)
[2016-05-18] MEDS ORDERED: NEBULIZER1 MI1 (11:49)
[2016-05-18] MEDS ORDERED: VENTAER INH (11:49)
[2016-05-18] MEDS ORDERED: DOXY100C PO (11:49)
[2016-05-18] MEDS ORDERED: ALBU0.08 NEB (11:49)
[2016-05-18] MEDS ORDERED: OXYGENTANK NAS.CANULA (11:49)
--- NOTE | 2016-05-18 11:51 | HHI.FF ---
Face to Face Verification Diagnosis: (1) Hypoxia (2) Shortness of breath (3) COPD with acute bronchitis Physical Therapy Order: Evaluate and Treat Home Health Nursing Order: Medical education Signs/symptoms of disease process Oxygen administration education Medication education-adverse effect Wound care and dressing changes Nursing assessment with vital signs I have seen patient Nakita Rivera on 05/18/16. My clinical findings support the need for the requested home health care services because: Ltd mobility - disease progression Patient has SOB Deconditioned w/ increased weakness Need for psychosocial assistance I certify that my clinical findings support that this patient is homebound because: Hx COPD- exertion dyspnea/weakness Need for psychosocial assistance Geovanna Cazares MD May 18, 2016 11:50
--- NOTE | 2016-05-18 11:53 | HHI.PR ---
Subjective Remarks Patient's main complaint today is sore throat and congestion in the upper airways. She still feels weak. She is very upset because she got news that her skin cancer is a squamous cell carcinoma. The patient has blood pressure elevations today and she is also concerned about that. Objective Vitals Vital Signs Date Time Temp Pulse Resp B/P Pulse Ox O2 Delivery O2 Flow Rate FiO2 05/18/16 10:22 93 Nasal Cannula 3.00 05/18/16 08:00 97.9 100 20 219/122 94 180/90 05/18/16 04:00 97.9 68 16 121/74 96 05/18/16 00:00 97.4 64 16 123/71 95 05/17/16 22:15 94 Nasal Cannula 2.00 05/17/16 20:00 97.9 73 18 155/89 94 05/17/16 16:00 98.2 88 20 149/86 93 05/17/16 12:00 98.8 92 22 153/88 93 I/O 05/17/16 05/17/16 05/17/16 05/18/16 05/18/16 05/18/16 07:00 15:00 23:00 07:00 15:00 23:00 Intake Total 580 ml 1135 ml 300 ml 440 ml Balance 580 ml 1135 ml 300 ml 440 ml Intake Oral 480 ml 1135 ml 240 ml IV Total 100 ml 300 ml 200 ml # Voids 4 4 1 2 # Bowel Movements 0 0 0 Result Diagram: 05/16/16 0608 05/18/16 0535 Objective Remarks GENERAL: Well-nourished, well-developed pleasant elderly female patient. SKIN: Warm and dry. HEAD: Normocephalic. EYES: No scleral icterus. No injection or drainage. NECK: Supple, trachea midline. No JVD or lymphadenopathy. CARDIOVASCULAR: Regular rate and rhythm without murmurs, gallops, or rubs. RESPIRATORY: Much improved airflow and nonlabored breathing on nasal cannula. No expiratory wheezing today. Still noted to have a wet sounding cough and a lot of nasal congestion. GASTROINTESTINAL: Abdomen soft, non-tender, nondistended. EXTREMITIES: No cyanosis, or edema. Patient does have a 1 cm black nodule on her right anterior/lateral saravia indicative of a skin cancer. NEUROLOGICAL: Awake, alert, and oriented x 3. Non-focal. A/P Problem List: (1) Shortness of breath ICD Code: R06.02 Status: Acute (2) Chronic obstructive pulmonary disease ICD Code: J44.9 Status: Acute (3) Hypoxia ICD Code: R09.02 Status: Acute (4) Hypertension ICD Code: I10 Status: Acute (5) Hyperlipidemia ICD Code: E78.5 Status: Acute (6) Lupus ICD Code: M32.9 Status: Acute Assessment and Plan -COPD exacerbation with new onset hypoxia. The patient gives a long-standing history of getting dyspneic with exertion. Clinically improved with much improved airflow. Will DC Solu-Medrol and start prednisone. Continue Zithromax and Azactam. Likely transition to doxycycline at discharge. Chest CTA was negative for pulmonary embolism but did show patchy areas of consolidation or atelectasis bilaterally more numerous on the right. Continue duo nebs and Spiriva. Continue O2 via nasal cannula at 3 L, wean to keep sats at 90% or higher. -Hyponatremia. Probably secondary to the HCTZ, improving daily. HCTZ discontinued. Sodium 133 today. Hypertension -Continue Cozaar, Coreg - blood pressures are running higher so I will increase the Cozaar to 50 mg daily. -Anxiety and depression. -Continue Ativan and Zoloft. As per home doses. -history myocardial infarction -continue aspirin, beta evelyn. Hypothyroidism Continue Synthroid. TSH within normal limits. DVT prevention Sequential compression devices Discharge Planning Possible discharge home tomorrow with home health care and home O2. Problem Qualifiers (1) Chronic obstructive pulmonary disease: Qualified Code: J44.9 - Chronic obstructive pulmonary disease, unspecified COPD type (2) Hypertension: Qualified Code: I15.9 - Secondary hypertension (3) Hyperlipidemia: Qualified Code: E78.5 - Hyperlipidemia, unspecified hyperlipidemia type (4) Lupus: Qualified Code: M32.9 - Systemic lupus erythematosus, unspecified SLE type, unspecified organ involvement status Geovanna Cazares MD May 18, 2016 11:53
[2016-05-18] MEDS ORDERED: LOSARTAN 25 MG TAB PO ONE (12:00)
[2016-05-18] MEDS: predniSONE 20 MG TAB PO SCH (22:03)
[2016-05-18] MEDS: SERTRALINE HCL 100 MG TAB PO SCH (22:03)
[2016-05-18] MEDS: ASPIRIN 325 MG TAB PO SCH (22:03)
[2016-05-19] VITALS (7 sets, daily range): BP systolic 138–180; BP diastolic 68–99; PULSE 65–97; RESP 17–22; TEMP 97.7–98.7; O2SAT 92–97
[2016-05-19] MEDS: LEVOTHYROXINE SODIUM 75 MCG TAB PO SCH (06:11)
[2016-05-19] MEDS: AZTREONAM INJ 2,000 MG in SODIUM CHLORIDE 0.9% INJ 100 ML IV SCH ×3 (06:11→20:41)
[2016-05-19] MEDS: RESP: ALBUTEROL 2.5 MG/IPRATROPIUM 0.5 MG NEB (SCH) INH ×3 (07:10→19:13)
[2016-05-19] MEDS: ONDANSETRON HCL 4 MG/2 ML VIAL IVP PRN (08:04)
[2016-05-19] MEDS: guaiFENesin E.R. 600 MG TAB PO SCH ×2 (08:07→20:47)
[2016-05-19] MEDS: AZITHROMYCIN 250 MG TAB PO SCH (08:07)
[2016-05-19] MEDS: CARVEDILOL 12.5 MG TAB PO SCH ×2 (08:07→20:47)
[2016-05-19] MEDS: predniSONE 20 MG TAB PO SCH ×2 (08:07→20:47)
[2016-05-19] MEDS: LORazepam 0.5 MG TAB PO PRN ×2 (08:07→20:47)
[2016-05-19] MEDS: TIOTROPIUM BROMIDE 18 MCG INH INH SCH (08:08)
[2016-05-19] MEDS: SODIUM CHLORIDE 0.9% FLUSH 5 ML FLUSH IVF SCH ×2 (08:09→20:48)
[2016-05-19] MEDS ORDERED: LOSARTAN 50 MG TAB PO SCH (09:00)
[2016-05-19] MEDS ORDERED: LOSARTAN 50 MG TAB PO ONE (10:30)
[2016-05-19] MEDS ORDERED: CARVEDILOL 12.5 MG TAB PO ONE (10:30)
--- NOTE | 2016-05-19 10:31 | HHI.PR ---
Subjective Remarks Patient seen and examined today with Dr. Cazares. Patient respiratory status improving, she is on 2 L nasal cannula at this time. Patient states that her breathing is improved. Discussed with her discharge options. Patient does not feel that she can go home today, because her daughter can't pick her up. Objective Vitals Vital Signs Date Time Temp Pulse Resp B/P Pulse Ox O2 Delivery O2 Flow Rate FiO2 05/19/16 08:00 97.7 97 17 180/99 97 05/19/16 07:10 97 Nasal Cannula 3.00 05/19/16 00:00 98.0 65 18 144/86 95 05/18/16 20:27 97.6 75 22 181/102 96 05/18/16 19:58 96 Nasal Cannula 3.00 05/18/16 16:00 98.0 72 18 130/80 96 05/18/16 12:00 97.0 70 20 122/71 95 05/18/16 10:22 93 Nasal Cannula 3.00 I/O 05/18/16 05/18/16 05/18/16 05/19/16 05/19/16 05/19/16 07:00 15:00 23:00 07:00 15:00 23:00 Intake Total 440 ml 700 ml Balance 440 ml 700 ml Intake Oral 240 ml 600 ml IV Total 200 ml 100 ml # Voids 2 4 3 # Bowel Movements 0 Result Diagram: 05/16/16 0608 05/18/16 0535 Objective Remarks GENERAL: Well-developed, well-nourished, in no acute distress. alert and orientated HEENT: Head is normocephalic without any lesions or masses noted. Facial features are symmetric. Eyes: Extraocular muscles are intact. Conjunctivae were clear. NECK: Supple without any masses. Trachea midline no deviation. No JVD, CARDIAC: Regular rhythm, regular rate. S1/S2 are heard. No murmurs gallops or rubs. LUNGS: Clear to auscultation bilaterally, no wheeze, rhonchi or rales. No use of accessory muscles on inspiration or expiration. ABDOMEN: Soft, nontender. Nondistended. Bowel sounds heard in all 4 quadrants. No organomegaly or masses. Negative rebound, negative guarding EXTREMITIES: No edema, pulses are equal bilaterally. No cyanosis or clubbing NEUROLOGY: Mood and affect appear appropriate. Cranial nerves II through XII grossly intact. Moving all extremities, speech is clear Urinary Catheter: No Vascular Central Line Catheter: No A/P Assessment and Plan -COPD exacerbation with new onset hypoxia. The patient gives a long-standing history of getting dyspneic with exertion. Clinically improved with much improved airflow. Discontinued Solu-Medrol and started prednisone. Continue Zithromax and Azactam. Likely transition to doxycycline at discharge. Chest CTA was negative for pulmonary embolism but did show patchy areas of consolidation or atelectasis bilaterally more numerous on the right. Continue duo nebs and Spiriva. Continue O2 via nasal cannula at 2 L, wean to keep sats at 90% or higher. Home oxygen walk study was performed which did show 74% on room air on exertion. Home oxygen has been arranged. -Hyponatremia. Probably secondary to the HCTZ, improved daily. HCTZ discontinued. Sodium improved to 133 -Hypertension. Increase the Coreg 25 mg twice daily, increase to Cozaar 100 mg daily -Anxiety and depression. Continue Ativan and Zoloft. As per home doses. -history myocardial infarction. continue aspirin, beta evelyn. -Hypothyroidism. Continue Synthroid. TSH within normal limits. -DVT prevention, -equential compression devices Written by Omar Gil PA-C, acting as scribe for Dr. Cazares on 05/19/16 at 1205. The documentation accurately reflects the work and decisions performed face-to- face by Dr. Cazaers on 05/19/16 at 1205. Discharge Planning Discharge planning within 24-48 hrs Omar Gil May 19, 2016 10:31
[2016-05-19] MEDS ORDERED: guaiFENesin/DEXTROMETHORPHAN 200 MG/20 MG/10 ML CUP PO PRN (12:15)
[2016-05-19] MEDS ORDERED: LORazepam 0.5 MG TAB PO SCH (13:00)
[2016-05-19] MEDS ORDERED: RESP: ALBUTEROL 2.5 MG/IPRATROPIUM 0.5 MG NEB (PRN) NEB (17:00)
[2016-05-19] MEDS: SERTRALINE HCL 100 MG TAB PO SCH (20:47)
[2016-05-19] MEDS: ASPIRIN 325 MG TAB PO SCH (20:47)
[2016-05-20 00:27] VITALS: BP 133/68; PULSE 58; RESP 18; TEMP 96.3; O2SAT 97
[2016-05-20] MEDS: AZTREONAM INJ 2,000 MG in SODIUM CHLORIDE 0.9% INJ 100 ML IV SCH ×2 (04:30→13:00)
[2016-05-20] MEDS: LEVOTHYROXINE SODIUM 75 MCG TAB PO SCH (06:05)
[2016-05-20] MEDS: RESP: ALBUTEROL 2.5 MG/IPRATROPIUM 0.5 MG NEB (SCH) INH ×2 (07:32→13:41)
[2016-05-20 07:35] VITALS: O2SAT 95
[2016-05-20 08:00] VITALS: BP 163/80; PULSE 68; RESP 18; TEMP 97; O2SAT 96
[2016-05-20] MEDS: CARVEDILOL 12.5 MG TAB PO SCH (08:41)
[2016-05-20] MEDS: predniSONE 20 MG TAB PO SCH (08:41)
[2016-05-20] MEDS: AZITHROMYCIN 250 MG TAB PO SCH (08:41)
[2016-05-20] MEDS: guaiFENesin E.R. 600 MG TAB PO SCH (08:42)
[2016-05-20] MEDS: LORazepam 0.5 MG TAB PO PRN (08:49)
[2016-05-20] MEDS: TIOTROPIUM BROMIDE 18 MCG INH INH SCH (08:50)
[2016-05-20] MEDS: SODIUM CHLORIDE 0.9% FLUSH 5 ML FLUSH IVF SCH (08:50)
[2016-05-20] MEDS ORDERED: LOSARTAN 50 MG TAB PO SCH (09:00)
--- NOTE | 2016-05-20 09:21 | HHI.DCPOC ---
Discharge Care Plan Diagnosis: (1) Chronic obstructive pulmonary disease (2) Hypoxia (3) Acute respiratory failure with hypoxia Goals to Promote Your Health * To prevent worsening of your condition and complications * To maintain your health at the optimal level Directions to Meet Your Goals Take your medications as prescribed Follow your dietary instruction Follow activity as directed Keep your appointments as scheduled Take your immunizations and boosters as scheduled If your symptoms worsen call your PCP, if no PCP go to Urgent Care Center or Emergency Room Smoking is Dangerous to Your Health. Avoid second hand smoke Call the 24-hour hour crisis hotline for domestic abuse at Omar Gil May 20, 2016 09:21
--- NOTE | 2016-05-20 09:26 | HHI.DS ---
Discharge Summary Admission Date May 15, 2016 at 14:09 Discharge Date: May 20, 2016 Admitting Diagnosis hyoxia,COPD Exac (1) Shortness of breath ICD Code: R06.02 (2) Chronic obstructive pulmonary disease ICD Code: J44.9 (3) Hypoxia ICD Code: R09.02 (4) Hypertension ICD Code: I10 (5) Hyperlipidemia ICD Code: E78.5 (6) Lupus ICD Code: M32.9 Procedures None Brief History - From Admission 85-year-old female with known history of hypertension, hyperlipidemia , history myocardial infarction, history of atrial fibrillation, lupus, chronic obstructive pulmonary disease who presented to hospital because of shortness of breath, dyspnea, cough, congestion. Patient states that his normal state of health until her daughter came down to visit. Her daughter was ill with upper respiratory symptoms. Similarly after that the patient started developing upper respiratory symptoms to include cough, congestion, fever, chills. Patient states that it started getting progressively worse yesterday and when she is short of breath today she called her railway yard assistant Dr. Noguera who told her to come to the hospital because she couldn't finish a sentence. Patient was found to have hypoxia with O2 saturation 85% on room air. Patient given nebulizer treatments, O2 supplementation with improvement of her O2 saturation of 92% on 2 L. However she still desaturates quite easily when off oxygen. Patient does have history of chronic affective pulmonary disease, she does have a tableau analyst Dr. Sparrow. She states that she hasn't seen in min quite some time. Patient states that she has had fever, chills, cough, congestion, phlegm production, shortness of breath, dyspnea. Denies any chest pain, dyspnea on exertion, lower extremity edema. CBC/BMP: 05/16/16 0608 05/18/16 0535 Significant Findings Laboratory Tests Test 05/18/16 05:35 Sodium Level 133 MEQ/L (136-145) Chloride Level 94 MEQ/L (98-107) Carbon Dioxide Level 32.8 MEQ/L (21.0-32.0) Creatinine 0.42 MG/DL (0.50-1.00) Random Glucose 121 MG/DL (74-106) Calcium Level 8.4 MG/DL (8.5-10.1) Imaging Last Impressions Chest X-Ray 05/15/16 1248 Signed Impressions: Service Date/Time: Sunday, May 15, 2016 12:58 - CONCLUSION: Normal examination. Continued diffuse interstitial prominence similar to 2013. Ryan Kee MD CT Angiography 05/15/16 0000 Signed Impressions: Service Date/Time: Sunday, May 15, 2016 19:35 - CONCLUSION: 1. No pulmonary embolus. 2. Enlargement of the main right and left pulmonary arteries which can suggest pulmonary hypertension. 3. Patchy areas of consolidation or atelectasis is seen in the lungs bilaterally being more numerous on the right. Juma Verduzco MD PE at Discharge GENERAL: Well-developed, well-nourished, in no acute distress. alert and orientated HEENT: Head is normocephalic without any lesions or masses noted. Facial features are symmetric. Eyes: Extraocular muscles are intact. Conjunctivae were clear. NECK: Supple without any masses. Trachea midline no deviation. No JVD, CARDIAC: Regular rhythm, regular rate. S1/S2 are heard. No murmurs gallops or rubs. LUNGS: Clear to auscultation bilaterally, no wheeze, rhonchi or rales. No use of accessory muscles on inspiration or expiration. ABDOMEN: Soft, nontender. Nondistended. Bowel sounds heard in all 4 quadrants. No organomegaly or masses. Negative rebound, negative guarding EXTREMITIES: No edema, pulses are equal bilaterally. No cyanosis or clubbing NEUROLOGY: Mood and affect appear appropriate. Cranial nerves II through XII grossly intact. Moving all extremities, speech is clear Hospital Course 85-year-old female with known history of hypertension, hyperlipidemia , myocardial infarction, atrial fibrillation, lupus, chronic affective pulmonary disease who recently presented to hospital with shortness of breath, dyspnea, cough, congestion. Patient had workup done emergency department found to have a cute hypoxia with O2 saturation 85% on room air. Patient was started on supplemental oxygen with improvement to 92%. When patient was removed off oxygen she easily had desaturations. Patient was admitted the hospital with chronic obstructive pulmonary disease exacerbation, acute respiratory failure with hypoxia. Patient was admitted the hospital and started on aggressive management with oxygen supplementation, antibiotics, nebulizer treatments, Solu- Medrol. Patient had rather increased wheezing and rattling from mucus production. Patient was started on other ancillary treatments to include incentive spirometry, Acapella, Mucinex. Patient did tolerate treatment well and successfully been weaned off Solu-Medrol and is currently on prednisone. Patient did not have any oxygen or nebulizer machine at home. Home health care has been arranged. Arranging home oxygen, nebulizer machine for home with case management. Patient has clinically improved and plan discharge home today with home health care Pt Condition on Discharge: Stable Discharge Disposition: Disch w/ Home Health Serv Discharge Time: > 30 minutes Discharge Instructions DIET: Follow Instructions for: Heart Healthy Diet Activities you can perform: Regular-No Restrictions Activities to Avoid: Driving for 24 hrs Follow up Referrals: PCP Follow-up - 1 Week New Medications: Albuterol 18 GM Inh (Ventolin Hfa 18 GM Inh) 90 Mcg/Act Aer 2 PUFF INH Q4H PRN SHORTNESS OF BREATH #1 Ref 0 INHALER Albuterol Neb (Albuterol Neb) 2.5 Mg/3 Ml Neb 2.5 MG NEB Q4HR NEB PRN SHORTNESS OF BREATH #60 Ref 0 NEBULE Doxycycline Hyclate (Doxycycline Hyclate) 100 Mg Cap 100 MG PO BID Infection #14 Ref 0 CAP Nebulizer (Nebulizer) 1 Mis Mis 1 EA .ROUTE DIRECTED Breathing Treatment #1 Ref 0 EA Oxygen tank (Oxygen tank) 1 Ea Tank 2 LITER MARINA.CANULA CONTINUOUS Oxygen Concentrator Portable Gaseous 2 L/min via Nasal Cannula Continuous For 99 months HYPOXEMIA PREVENTION #3 CYLINDER Changed Medications: Losartan (Losartan) 25 Mg Tab 50 MG PO DAILY Blood Pressure Management #60 Ref 0 TAB (Changed from: 25 MG; 30) Continued Medications: Aspirin (Aspirin) 325 Mg Tab 325 MG PO HS #30 Ref 0 TAB B-Complex Vitamins (Vitamin B Complex) 1 Tab 1 TAB PO DAILY Calcium Carbonate (Calcium) 600 Mg Tab 600 MG PO HS Carvedilol (Carvedilol) 12.5 Mg Tab 12.5 MG PO BID #60 Ref 0 TAB Cholecalciferol (Vitamin D3) 1,000 Unit Cap Unknown Dose PO DAILY Nutritional Supplement #1 Ref 0 BOTTLE Levothyroxine (Levoxyl) 75 Mcg Tab 75 MCG PO DAILY Thyroid #30 Ref 0 TAB Lorazepam (Ativan) 0.5 Mg Tab 0.5 MG PO DAILY ANXIETY AND/OR AGITATION Ref 0 TAB Lorazepam (Ativan) 0.5 Mg Tab 2 TAB PO HS ANXIETY AND/OR AGITATION Ref 0 TAB Multiple Vitamin (Multi Vitamin) 1 Tab Tab 1 TAB PO DAILY TAB Sertraline (Zoloft) 100 Mg Tab 100 MG PO HS #30 Ref 0 TAB Tiotropium Inh (Spiriva Handihaler) 18 Mcg Cap 18 MCG INH DAILY 1 capsule = 18 mcg COPD #30 Ref 0 CAP Discontinued Medications: Albuterol Neb (Albuterol Neb) 2.5 Mg/3 Ml Neb 2.5 MG NEB Q4HR NEB PRN SHORTNESS OF BREATH #60 Ref 0 NEBULE Additional Information Written by Omar Gil PA-C, acting as scribe for Dr. Cazares on 05/20/16 at 1200. The documentation accurately reflects the work and decisions performed face-to- face by Dr. Cazares on 05/20/16 at 1200. Omar Gil May 20, 2016 09:26
[2016-05-20] MEDS ORDERED: MEDR4PAK PO (10:42)
[2016-05-20 12:00] VITALS: BP 148/76; PULSE 71; RESP 20; TEMP 97.8; O2SAT 95
[2016-05-20] MEDS ORDERED: COZA50TA PO (12:03)
[2016-05-20] MEDS ORDERED: CARV12.5 PO (12:03)
== END 2016-05-20 15:20 | disposition home health service (06) | DRG 190 ==
LOC: PHED 12:19 → PHEDA 14:09 → PH3A 16:34
PROVIDERS: ADMIT Family Medicine; ATTEND Family Medicine
DX: J44.1 Chronic obstructive pulmonary disease with (acute) exacerbation (principal); J96.01 Acute respiratory failure with hypoxia; M32.9 Systemic lupus erythematosus, unspecified; I48.91 Unspecified atrial fibrillation; E87.1 Hypo-osmolality and hyponatremia; I25.2 Old myocardial infarction; E78.5 Hyperlipidemia, unspecified; I10 Essential (primary) hypertension; M06.9 Rheumatoid arthritis, unspecified; E03.9 Hypothyroidism, unspecified; N39.3 Stress incontinence (female) (male); F32.9 Major depressive disorder, single episode, unspecified; F41.9 Anxiety disorder, unspecified; C44.722 Squamous cell carcinoma of skin of right lower limb, including hip; Z79.82 Long term (current) use of aspirin; Z87.891 Personal history of nicotine dependence
CPT/HCPCS: 71010; 71275; 80048; 83930; 83935; 84300; 84443; 85025; 85379; 87070; 87205; 87804; 93005; 94150; 94620; 94640; 94664; 94667; 94668; J2060; J2405; J2930; J7512; Q9967